=== PATIENT | female | born 1970 | race Caucasian/White ===

== ENCOUNTER → 2018-01-21 | Outpatient (CLI) | payer OTHER ==
[~2018-01-21] MED LIST: ACE3 PO; IBU800 PO; OXYC-865 PO; PREN-127 PO
--- NOTE | 2018-01-22 14:41 | RADIOLOGY IMAGING REPORT ---
FACILITY: [facility] PATIENT NAME: LAZ WARREN : [id number] MR: [id number] V: [id number] EXAM DATE: [id number] ORDERING PHYSICIAN: GALDINO GARCÍA TECHNOLOGIST: Parish Alvarenga PROCEDURE:US BILATERAL BREAST COMPARISON:None. INDICATIONS:Possible lump upper outer quadrant left breast and abnormal mammogram. FINDINGS: There are numerous cysts seen throughout both breasts. The largest cyst on the right measures 3.4cm in diameter in the 10 o'clock position. The largest cyst on the left measures 2.7cm in diameter in the 1:30 position left breast 10cm from the nipple which may account for patients palpable findings. Mildly prominent ducts are also noted bilaterally. DIAGNOSTIC CATEGORY 2--BENIGN FINDING. RECOMMENDATIONS: ROUTINE MAMMOGRAM AND CLINICAL EVALUATION. IMPRESSION: BIRADS 2: Benign finding There are numerous bilateral breast cysts likely accounting for patient's clinical findings. Dictated by: Sloane Ybarra M.D. on 01/21/2018 at 16:27 Transcribed by: JED on 01/22/2018 at 14:17 Approved by: Slaone Ybarra M.D. on 01/22/2018 at 14:41 [facility]
--- NOTE | 2018-01-22 14:41 | RADIOLOGY IMAGING REPORT ---
FACILITY: [facility] [place] PATIENT NAME: LAZ WARREN : [id number] MR: [id number] V: [id number] EXAM DATE: ORDERING PHYSICIAN: GALDINO GARCÍA TECHNOLOGIST: Radha Mtz PROCEDURE:BILATERAL DIAGNOSTIC DIGITAL MAMMOGRAM WITH CAD ASSISTED INTERPRETATION & 3D TOMOSYNTHESIS COMPARISON:None. INDICATIONS:upper outer quadrant Left breast lump FINDINGS: Extremely dense heterogeneous fibroglandular tissue is seen throughout the breasts. There are multiple lobular masses scattered throughout both breasts. Today's bilateral breast Ultrasound did demonstrate numerous cysts throughout both breasts. No solid masses were demonstrated. There is no demonstration of malignant appearing mass, malignant appearing calcifications or other secondary sign of malignancy in either breast. DIAGNOSTIC CATEGORY 2--BENIGN FINDING. RECOMMENDATIONS: ROUTINE MAMMOGRAM AND CLINICAL EVALUATION. IMPRESSION: BIRADS 2: Benign finding Multiple bilateral breast cysts Dictated by: Sloane Ybarra M.D. on 01/21/2018 at 16:25 Transcribed by: JED on 01/22/2018 at 14:18 Approved by: Sloane Ybarra M.D. on 01/22/2018 at 14:40 [facility]
== END ==
LOC: MAMO 01-19 13:09
PROVIDERS: ATTEND Obstetrics & Gynecology
DX: N60.01 Solitary cyst of right breast (principal); N60.02 Solitary cyst of left breast; N60.41 Mammary duct ectasia of right breast; N60.42 Mammary duct ectasia of left breast
CPT/HCPCS: 76641; 77062; 77066